=== PATIENT | female | born 1955 | race Caucasian/White ===

== ENCOUNTER 2020-12-22 17:36 | Emergency (ER) | payer OTHER ==
[~2020-12-22] VITALS: Ht 175.3 cm; Wt 108.9 kg
[2020-12-22 19:58] LABS: Source, Urine Clean Catch
[2020-12-22 20:02] LABS: Bilirubin, Urine Neg (Neg); Blood, Urine Neg (Neg); Glucose Qualitative, Urine 4+ (Neg); Ketones, Urine Neg (Neg); Leukocyte Esterase, Urine Neg (Neg); Nitrite, Urine Neg (Neg); Protein, Urine Neg (Neg); Specific Gravity, Urine 1.015 (1.003-1.022); Urobilinogen, Urine NORM (Normal)
[2020-12-22 20:09] LABS: Appearance, Urine Clear (Clear); Color, Urine Yellow (P-Yellow)
[2020-12-22] MEDS ORDERED: Macrobid 100 M100 MG PO (20:50)
== END 2020-12-22 20:55 | disposition home or self-care (01) ==
LOC: ER 17:36
PROVIDERS: Emergency Medicine
DX: N39.0 Urinary tract infection, site not specified (principal); R32 Unspecified urinary incontinence; Z88.1 Allergy status to other antibiotic agents
CPT/HCPCS: 81003; 99283; A9270

== ENCOUNTER 2021-01-03 18:07 | Observation (INO) | payer OTHER ==
[~2021-01-03] VITALS: Ht 175.3 cm; Wt 116.3 kg
[~2021-01-03 18:07] MED LIST: Macrobid 100 M100 MG PO
[2021-01-03 19:24] LABS: BASOPHILS ABSOLUTE AUTO 0.04 K/mm3 (0.00-0.23); BASOPHILS PERCENT AUTO 0 % (0-2); EOSINOPHILS ABSOLUTE AUTO 0.11 K/mm3 (0.00-0.68); EOSINOPHILS PERCENT AUTO 1 % (0-6); Hematocrit 46.2 % (33.0-51.0); Hemoglobin 15.7 g/dL (11.5-16.0); IMMATURE GRAN ABSOLUTE AUTO 0.07 K/mm3 (0.00-0.10); IMMATURE GRAN PERCENT AUTO 1 % (0-1); LYMPHOCYTES ABSOLUTE AUTO 1.56 K/mm3 (0.84-5.20); LYMPHOCYTES PERCENT AUTO 13 % (21-46); MONOCYTES ABSOLUTE AUTO 0.57 K/mm3 (0.16-1.47); MONOCYTES PERCENT AUTO 5 % (4-13); Mean Corpuscular HGB 30.5 pg (26.0-34.0); Mean Corpuscular Volume 90 fL (80-100); Mean Platelet Volume 10.8 fL (9.1-12.4); NEUTROPHILS ABSOLUTE AUTO 9.46 K/mm3 (1.96-9.15); NEUTROPHILS PERCENT AUTO 80 % (41-73); Platelet Count 232 K/mm3 (150-400); RDW Coefficient Variation 13.1 % (11.7-14.2); Red Blood Cell Count 5.14 M/mm3 (3.80-5.20); White Blood Cell Count 11.81 K/mm3 (4.00-11.30)
[2021-01-03 19:49] LABS: Alanine Aminotransfer (ALT/SGP 79 U/L (12-78); Albumin, Blood 3.4 g/dL (3.4-5.0); Albumin/Globulin Ratio 0.7 (0.8-1.8); Alk Phos 186 U/L (50-136); Anion Gap 6 mmol/L (6-16); Aspartate Aminotrans (AST/SGOT 67 U/L (12-37); Bilirubin, Total 0.5 mg/dL (0.1-1.0); Blood Urea Nitrogen 19 mg/dL (8-24); Bun/Creatinine Ratio 24.4 (12.0-20.0); CO2, Blood 28 mmol/L (21-32); Calcium, Blood 9.3 mg/dL (8.5-10.1); Chloride, Blood 94 mmol/L (98-108); Creatinine, Blood 0.78 mg/dL (0.40-1.00); Globulin, Blood 4.7 g/dL (2.2-4.0); Glomerular Filtration Rate >60 (60-); Glucose, Blood 514 mg/dL (70-99); Potassium, Blood 4.3 mmol/L (3.5-5.5); Sodium, Blood 128 mmol/L (136-145); Total Protein, Blood 8.1 g/dL (6.4-8.2)
[2021-01-03 19:56] LABS: Source, Urine Voided
[2021-01-03 20:00] LABS: Bilirubin, Urine Neg (Neg); Blood, Urine Neg (Neg); Glucose Qualitative, Urine 4+ (Neg); Ketones, Urine 1+ (Neg); Leukocyte Esterase, Urine Neg (Neg); Nitrite, Urine Pos (Neg); Protein, Urine 1+ (Neg); Urobilinogen, Urine NORM (Normal)
[2021-01-03 20:07] LABS: Appearance, Urine Clear (Clear); Color, Urine Yellow (P-Yellow)
[2021-01-03 20:13] LABS: Bacteria Rare /hpf; Red Blood Cells, Urine Not Seen /hpf (0-2); Squamous Epithelial Cells Few /hpf (Few); Yeast/Fungi Urine Mod /hpf
--- NOTE | 2021-01-04 00:31 | NUR ---
SPOKE WITH DR BISHOP RE BS OF 429 UPON ARRIVAL TO MEDICAL FLOOR. GAVE PT HS SS DOSE OF 5 UNITS OF HUMALOG NONSCHEDULED PT HAD NOT RECIEVED ANY INSULIN YET, ALSO GAVE 25 UNITS OF SEMGLEE. PLAN TO RECHECK BLOOD SUGAR IN ABOUT 1 HOUR AFTER MED GIVEN. DR BISHOP DOES NOT WISH ANY FURTHER ORDERS AT THIS TIME.
--- NOTE | 2021-01-04 00:40 | NUR ---
2333 PT ARRIVED TO ROOM FROM ER IN STABLE CONDITION. DENIES ANY DISCOMFORT AT THIS TIME. BS WAS 429, WILL GIVE INSULIN ORDERED AND NOTIFY THE DR. NO OTHER APPARENT SIGNS OF DISTRESS. CALL LIGHT IS IN REACH.
--- NOTE | 2021-01-04 02:29 | NUR ---
0204 PT LYING IN BED, EYES CLOSED, APPEARS TO BE RESTING. BREATHING IS EVEN, UNLABORED. NO APPARENT SIGNS OF DISTRESS. CALL LIGHT IS IN REACH. SPOKE WITH DR DARIO HARKINS REPEAT BLOOD SUGAR OF 464. PT DID HAVE 1/2 OF A SANDWICH. NO NEW ORDERS AT THIS TIME.
[2021-01-04 04:46] LABS: BASOPHILS ABSOLUTE AUTO 0.05 K/mm3 (0.00-0.23); BASOPHILS PERCENT AUTO 1 % (0-2); EOSINOPHILS ABSOLUTE AUTO 0.17 K/mm3 (0.00-0.68); EOSINOPHILS PERCENT AUTO 2 % (0-6); Hematocrit 43.2 % (33.0-51.0); Hemoglobin 14.3 g/dL (11.5-16.0); IMMATURE GRAN ABSOLUTE AUTO 0.05 K/mm3 (0.00-0.10); IMMATURE GRAN PERCENT AUTO 1 % (0-1); LYMPHOCYTES ABSOLUTE AUTO 1.47 K/mm3 (0.84-5.20); LYMPHOCYTES PERCENT AUTO 15 % (21-46); MONOCYTES ABSOLUTE AUTO 0.58 K/mm3 (0.16-1.47); MONOCYTES PERCENT AUTO 6 % (4-13); Mean Corpuscular HGB 29.9 pg (26.0-34.0); Mean Corpuscular HGB Conc 33.1 g/dL (31.5-36.5); Mean Corpuscular Volume 90 fL (80-100); NEUTROPHILS ABSOLUTE AUTO 7.51 K/mm3 (1.96-9.15); NEUTROPHILS PERCENT AUTO 76 % (41-73); Platelet Count 214 K/mm3 (150-400); RDW Coefficient Variation 13.2 % (11.7-14.2); RDW Standard Deviation 43.9 fL (35.1-46.3); Red Blood Cell Count 4.78 M/mm3 (3.80-5.20); White Blood Cell Count 9.83 K/mm3 (4.00-11.30)
[2021-01-04 05:14] LABS: Alanine Aminotransfer (ALT/SGP 71 U/L (12-78); Albumin/Globulin Ratio 0.8 (0.8-1.8); Alk Phos 161 U/L (50-136); Anion Gap 5 mmol/L (6-16); Aspartate Aminotrans (AST/SGOT 56 U/L (12-37); Bilirubin, Total 0.5 mg/dL (0.1-1.0); Blood Urea Nitrogen 19 mg/dL (8-24); Bun/Creatinine Ratio 25.1 (12.0-20.0); CO2, Blood 30 mmol/L (21-32); Calcium, Blood 8.5 mg/dL (8.5-10.1); Chloride, Blood 98 mmol/L (98-108); Creatinine, Blood 0.76 mg/dL (0.40-1.00); Glomerular Filtration Rate >60 (60-); Glucose, Blood 375 mg/dL (70-99); Potassium, Blood 3.8 mmol/L (3.5-5.5); Sodium, Blood 133 mmol/L (136-145)
--- NOTE | 2021-01-04 06:36 | NUR ---
PT IS AAO X 4, DENIED ANY DISCOMFORT FOR THIS SHIFT. BS WAS 514, 429, 464, 375. ON RA.
--- NOTE | 2021-01-04 06:36 | NUR ---
0400 pt lying in bed, eyes closed, appears to be resting. breathing is even, unlabored. wakes easily to verbal stimuli. no apparent signs of distress. call light is in reach.
--- NOTE | 2021-01-04 06:39 | NUR ---
PT LYING IN BED, AWAKE, GLAZIER HELPER JUST FINISHED RECHECKING O2, WAS 85% ON RA AT 0400, O2 IS NOW 90% ON RA. WILL LET THE DAY RN KNOW. NO OTHER APPARENT SIGNS OF DISTRESS. CALL LIGHT IS IN REACH. NO OTHER CHANGES THIS SHIFT.
--- NOTE | 2021-01-04 08:07 | NUR ---
BLOOD SUGAR [address] WILKINSON RE ABOVE BLOOD SUGAR THIS AM. CONTINUE MEDS PER EMAR. NO NEW ORDER.
--- NOTE | 2021-01-04 09:58 | NUR ---
BLOOD SUGAR > [address] WILKINSON OF ABOVE RESULTS. T.O. FOR 1L BOLUS STAT.
[2021-01-04 10:36] LABS: Glucose, Blood 500 mg/dL (70-99)
--- NOTE | 2021-01-04 15:56 | NUR ---
Shift Summary A/Ox4. Up independently. Patient had a meltdown, became tearful d/t wanting to go outside for a cigarette and wanting to go home. Blood sugars remain high. Laboratory [facility] consult placed. Sarah provided education on diabetic diet, insulin types and characteristics, ideal lab work, and glucose monitoring with daughter Corina and patient at the bedside. Written information also given by Sarah. Had patient return demonstration with dinner insulin dose, will continue to provide demonstration and have patient teach back during hospitalization. Offered nicotine patch and patient agreeable. Provided therapeutic listening and explained that stay in hospital is only temporary until blood sugars are under control. Appetite is good, patient claims she is ALWAYS hungry. Per Sarah, patient will need 3-4 glucose strips daily prescribed at discharge so she can check blood glucose throughout the day. KAHLIL.
--- NOTE | 2021-01-05 03:58 | NUR ---
EARLY CHILDHOOD SERVICES COORDINATOR SUMMARY PT A/O X4. INDEPENDENT IN ROOM. PT STARTED HAVING BACK PAIN OVERNIGHT. PT STATED IT IS MOST LIKELY DUE TO LAYING IN BED TOO MUCH. HEATING PAD PROVIDED FOR BACK PAIN. DENIES SOB, NAUSEA. NO ACUTE CHANGES. CALL LIGHT WITHIN REACH, WILL CONTINUE TO MONITOR.
[2021-01-05 05:04] LABS: Albumin, Blood 2.8 g/dL (3.4-5.0); Anion Gap 4 mmol/L (6-16); Blood Urea Nitrogen 15 mg/dL (8-24); Bun/Creatinine Ratio 22.2 (12.0-20.0); CO2, Blood 28 mmol/L (21-32); Calcium, Blood 8.3 mg/dL (8.5-10.1); Chloride, Blood 105 mmol/L (98-108); Creatinine, Blood 0.68 mg/dL (0.40-1.00); Glomerular Filtration Rate >60 (60-); Glucose, Blood 201 mg/dL (70-99); Phosphorus, Blood 3.5 mg/dL (2.5-4.9); Potassium, Blood 3.7 mmol/L (3.5-5.5); Sodium, Blood 137 mmol/L (136-145)
[2021-01-05] MEDS ORDERED: INSULANPEN SC (09:43)
[2021-01-05] MEDS ORDERED: HUMALOG KW100 UNIT/1 SC (09:49)
[2021-01-05] MEDS ORDERED: NICODERM CQ1 EAC1 TOP (09:50)
[2021-01-05] MEDS ORDERED: [UNRECOGNIZED DRUG - SUPPLY] UD (09:51)
[2021-01-05] MEDS ORDERED: GLUCOMETER (09:52)
--- NOTE | 2021-01-05 10:30 | NUR ---
Discharge Summary AO, pleasant. Discharging to home. Reviewed discharge paperwork with patient and Veronica (daughter) at bedside. Questions answered to their satisfaction. Meds faxed to [facility], diabetes equipments were called into pharmacy per Dr. Barrett (glucometer, lancets, strips). Patient instructed to purchase alcohol swabs OTC d/t no insurance coverage. Copy of discharge paperwork given. Briefly reviewed again diabetes education, copies given. Medium CS also printed and handed to patient/daughter. Declined to be wheeled by HOUSEKEEPING ASSISTANT, Veronica escorted patient via w/c. Personal belongings including cell phone sent home.
== END 2021-01-05 10:29 | disposition home or self-care (01) ==
LOC: ER 18:07 → MEDS 18:08
PROVIDERS: Family Medicine; Physician Assistant; ADMIT Internal Medicine
DX: E11.65 Type 2 diabetes mellitus with hyperglycemia (principal); E87.1 Hypo-osmolality and hyponatremia; E86.0 Dehydration; R32 Unspecified urinary incontinence; E66.01 Morbid (severe) obesity due to excess calories; Z68.34 Body mass index [BMI] 34.0-34.9, adult; F17.210 Nicotine dependence, cigarettes, uncomplicated; Z88.1 Allergy status to other antibiotic agents
CPT/HCPCS: 36415; 80053; 80069; 81001; 82947; 83036; 85025; 96372; 99285; A9270; G0378; J1650; J7030

== ENCOUNTER → 2021-10-22 | Outpatient (CLI) | payer OTHER ==
[~2021-10-22] MED LIST changes: +GLUCOMETER; +HUMALOG KW100 UNIT/1 SC; +INSULANPEN SC; +NICODERM CQ1 EAC1 TOP; +[UNRECOGNIZED DRUG - SUPPLY] UD
[2021-10-25 15:11] LABS: HPV 16 Negative (Negative); HPV 18 Negative (Negative); HPV OTHER HR TYPES Negative (Negative)
== END | disposition home or self-care (01) ==
LOC: LAB SHORT 19:29
PROVIDERS: Nurse Practitioner Family
DX: Z12.4 Encounter for screening for malignant neoplasm of cervix (principal)
CPT/HCPCS: 87624; G0145

== ENCOUNTER 2023-01-29 14:21 | Day surgery (SDC) | payer OTHER ==
[~2023-01-29] VITALS: Ht 175.3 cm; Wt 111.0 kg
[2023-01-29] MEDS ORDERED: ATOR10 PO (15:00)
[2023-01-29] MEDS ORDERED: ESCI10 PO (15:01)
[2023-01-29] MEDS ORDERED: Lisinopril2.5 MG PO (15:01)
[2023-01-29 15:25] LABS: BASOPHILS ABSOLUTE AUTO 0.04 K/mm3 (0.00-0.23); BASOPHILS PERCENT AUTO 1 % (0-2); EOSINOPHILS ABSOLUTE AUTO 0.11 K/mm3 (0.00-0.68); EOSINOPHILS PERCENT AUTO 2 % (0-6); Hemoglobin 15.6 g/dL (11.5-16.0); IMMATURE GRAN ABSOLUTE AUTO 0.02 K/mm3 (0.00-0.10); IMMATURE GRAN PERCENT AUTO 0 % (0-1); LYMPHOCYTES ABSOLUTE AUTO 1.57 K/mm3 (0.84-5.20); LYMPHOCYTES PERCENT AUTO 21 % (21-46); MONOCYTES ABSOLUTE AUTO 0.42 K/mm3 (0.16-1.47); MONOCYTES PERCENT AUTO 6 % (4-13); Mean Corpuscular HGB 29.9 pg (26.0-34.0); Mean Corpuscular HGB Conc 33.9 g/dL (31.5-36.5); Mean Corpuscular Volume 88 fL (80-100); Mean Platelet Volume 9.8 fL (9.1-12.4); NEUTROPHILS ABSOLUTE AUTO 5.37 K/mm3 (1.96-9.15); NEUTROPHILS PERCENT AUTO 71 % (41-73); Platelet Count 192 K/mm3 (150-400); RDW Coefficient Variation 13.4 % (11.7-14.2); RDW Standard Deviation 43.6 fL (35.1-46.3); Red Blood Cell Count 5.21 M/mm3 (3.80-5.20); White Blood Cell Count 7.53 K/mm3 (4.00-11.30)
[2023-01-29 15:28] VITALS: BP 152/92
--- NOTE | 2023-01-29 15:29 | NUR ---
01/29/23 1529 SIMONEMARKEL DAUGHTER JOSE A AT THE BEDSIDE. PT REPORTS HIGH ANXIETY. SLIGHT WHEEZE ASCULTATED TO RIGHT LOWER LOBE. PT IS A CURRENT EVERY DAY SMOKER, A PACK A DAY. PT DENIES FEELING TIGHT OR DIFFICULTY BREATHING.
[2023-01-29 15:46] LABS: Albumin, Blood 3.6 g/dL (3.4-5.0); Albumin/Globulin Ratio 0.9 (0.8-1.8); Bilirubin, Total 0.4 mg/dL (0.1-1.0); Bun/Creatinine Ratio 18.3 (12.0-20.0); Calcium, Blood 9.2 mg/dL (8.5-10.1); Creatinine, Blood 0.82 mg/dL (0.40-1.00); Globulin, Blood 4.1 g/dL (2.2-4.0); Total Protein, Blood 7.7 g/dL (6.4-8.2)
--- NOTE | 2023-01-29 17:20 | NUR ---
01/29/23 1720 Nasreen Jacobo PT AWAKE, LUNGS ARE CLEAR BUT DECREASED THROUGHOUT. PT SATS AT 88% ON RA BUT WHEN SHE COUGHS HER O2 SATS INCREASE TO 100% ON RA. PT ENCOURAGED TO DEEP BREATH AND COUGH MULTIPLE TIMES DURING THE DAY. PT ENCOURAGED TO STOP SMOKING. PT VERBALIZES UNDERSTANDING. PT TO BE DISCHARGED HOME.
== END 2023-01-29 17:25 | disposition home or self-care (01) ==
LOC: ORSCSDS 14:21
PROVIDERS: Podiatrist
PROC: 0JBQ0ZX Excision of Right Foot Subcutaneous Tissue and Fascia, Open Approach, Diagnostic (ICD-10-PCS; principal; 2023-01-29 15:45)
DX: L57.0 Actinic keratosis (principal); E11.42 Type 2 diabetes mellitus with diabetic polyneuropathy; R22.41 Localized swelling, mass and lump, right lower limb; I10 Essential (primary) hypertension; E78.5 Hyperlipidemia, unspecified; F17.210 Nicotine dependence, cigarettes, uncomplicated; E66.9 Obesity, unspecified; Z68.36 Body mass index [BMI] 36.0-36.9, adult; Z79.4 Long term (current) use of insulin; Z79.899 Other long term (current) drug therapy
CPT/HCPCS: 80053; 82947; 85025; 88305; 93005; 93010; A9270; J0690; J2250; J2704; J2795; J3010; J7120